=== PATIENT | female | born 1980 ===

== ENCOUNTER 2020-06-02 11:15 | Inpatient (IN) | payer OTHER ==
[~2020-06-02] VITALS: Ht 167.6 cm; Wt 68.0 kg
[2020-06-02] MEDS ORDERED: SYNTHROID50 MCG PO (14:11)
[2020-06-02] MEDS ORDERED: LOSARTAN-HCTZ1 EACH PO (14:11)
[2020-06-11] MEDS ORDERED: NAPR500T14 PO (04:34)
[2020-06-11] MEDS ORDERED: Tylenol #3 PO (04:34)
== END 2020-06-11 10:07 | disposition home or self-care (01) | DRG 743 ==
LOC: ADM 11:15 → EDSTATUS 11:15 → O/R 06-08 06:00 → OB/GYN 06-08 11:15
PROVIDERS: ADMIT Obstetrics & Gynecology; ATTEND Obstetrics & Gynecology
PROC: 0UB90ZZ Excision of Uterus, Open Approach (ICD-10-PCS; principal; 2020-06-08 17:00)
DX: D25.1 Intramural leiomyoma of uterus (principal); N92.0 Excessive and frequent menstruation with regular cycle; R10.2 Pelvic and perineal pain; I10 Essential (primary) hypertension; E03.9 Hypothyroidism, unspecified